=== PATIENT | female | born 1950 | race Caucasian/White ===

== ENCOUNTER 2023-10-09 10:16 | Outpatient (CLI) | payer MEDICARE, SELFPAY ==
[2023-10-09] VITALS (8 sets, daily range): BP systolic 127–184; BP diastolic 57–120; PULSE 70–98; RESP 12–18; TEMP 36.9; O2SAT 95–100
--- NOTE | 2023-10-09 11:00 | DI.RAD.S_ITS ---
PROCEDURE: PAIN L INTERLAMINAR/CAUDAL INJ INDICATIONS: LUMBAR RADICULOPATHY COMPARISON: Outside Facility, MR, MR LUMBAR SPINE WO CON, 07/31/2023, 10:36. [facility], CR, XR LUMBAR SPINE 2-3V, 05/15/2023, 14:21. FINDINGS: Fluoroscopic spot filming was performed to verify placement of spinal needles at the L4-L5 level(s), as labeled on the films. Appropriate location(s) of the needle tip(s) was confirmed by injection of iodinated contrast. IMPRESSION: Fluoroscopy for pain management. Dictated by: Meredith Mendoza M.D. on 10/09/2023 at 17:07 Approved by: Meredith Mendoza M.D. on 10/09/2023 at 17:08
[2023-10-09] MEDS: MIDAZOLAM 2 MG/2 ML VIAL 1 MG IV (11:11)
[2023-10-09] MEDS: DEXAMETHASONE 10 MG/ML VIAL INJ (11:15)
[2023-10-09] MEDS: iopamidoL 15 ML VIAL 3 ML INJ (11:16)
--- NOTE | 2023-10-09 12:11 | P.PCN_ITS ---
Date/Time/Diagnoses Date of procedure: 10/09/23 Time of procedure: 11:30 Procedure Notes Physician: Juan Herring Total Fluoroscopy time (seconds): 24 Total sedation minutes: 18 Procedure in detail & Post-procedure care: L4-5 Interlaminar Epidural Steroid Injection Indications: Ibis is presenting for treatment of lumbar radiculopathy with low back and leg pain. Preoperative diagnosis: Lumbar radiculopathy Postoperative diagnosis: Same Focused Examination: Ax3 Mood and affect are normal Vital Signs: VSS ASA: 3 Consent: Following review of allergies and potential side effects/complications, including, but not necessarily limited to, infection, allergic reaction, local tissue breakdown, stroke, temporary or permanent nerve injury, paralysis, and possible , the patient indicated that they understood and agreed to p roceed.? An informed consent document was signed by the patient, witnessed by a nurse and placed in the patient's chart.? Additionally, other treatment options including medications and physical therapy were reviewed with the patient. All questions were answered. Site was then marked. Anesthesia: After review of previous anesthetic history and IV conscious sedation, the patient was deemed safe to proceed with today's procedure with IV conscious sedation. IV sedation was accomplished with midazolam 1 mg administered by the RN after order by Dr. Herring. Sedation was titrated to patient comfort during the course of the procedure. Patient remained responsive to all verbal commands. Position: Prone Monitoring: NIBP, Pulse oximetry, 3 lead EKG Needle used: 18 gauge, 5? Tuohy Contrast: Isovue 300M Injectate: Dexamethasone 10 mg with 1% lidocaine 2 mL Technique: The skin was prepped with chloraprep and then draped in a sterile fashion. Time out was performed as per protocol. Oxygen applied via NC. Skin and subcutaneous structures of the needle entry site was then infiltrated with 3 mL of lidocaine 1%. Under AP, lateral and contralateral oblique fluoroscopic control, the Tuohy needle was guided into the L4-5 epidural space. The space was accessed with loss of resistance technique. Isovue 300M was then injected and the spread was consistent with the epidural space. There was no evidence for intravascular or intrathecal uptake. After negative aspiration, the above- mentioned injectate was then slowly administered and the needle withdrawn. The patient expressed no unusual discomfort or paresthesias during the injection. Band-Aids applied to injection sites. EBL: less than 1 ml Complications: None Post Procedure: Patient was taken to the recovery and monitored. The patient was provided a Pain Log to continue to record the patient's response to the target- specific procedure prior to the patient's follow-up visit with the referring physician. Patient was stable upon discharge. Detailed post procedure instructions were provided. Patient was asked to call in the event of worsening pain, fever, weakness, numbness or bladder or bowel incontinence.
== END 2023-10-09 11:46 | disposition home or self-care (01) ==
PROVIDERS: PCP Internal Medicine; Referring Provider Anesthesiology; Visit Provider Anesthesiology
DX: M54.16 Radiculopathy, lumbar region (principal)
CPT/HCPCS: 62323; 99152; J1100; J2250

== ENCOUNTER 2024-06-18 13:21 | Outpatient (CLI) | payer MEDICARE, SELFPAY ==
[2024-06-18] VITALS (9 sets, daily range): BP systolic 139–180; BP diastolic 65–98; PULSE 89–101; RESP 11–21; TEMP 37.1; O2SAT 96–100
--- NOTE | 2024-06-18 13:23 | DI.RAD.S_ITS ---
PROCEDURE: PAIN L INTERLAMINAR/CAUDAL INJ INDICATIONS: para Right L4/5 TL BUSHRA COMPARISON: [facility], , PAIN L INTERLAMINAR/CAUDAL INJ, 10/09/2023, 11:14. FINDINGS/IMPRESSION: Fluoroscopic spot filming was performed to verify placement of spinal needles at the right L4-L5 level(s), as labeled on the films. Appropriate location(s) of the needle tip(s) was confirmed by injection of iodinated contrast. Dictated by: Neftali Agosto M.D. on 06/21/2024 at 15:34 Approved by: Neftali Agosto M.D. on 06/21/2024 at 15:35
--- NOTE | 2024-06-18 14:08 | PM.PROC.IR.1 ---
Date/Time/Diagnoses Date of procedure: 06/18/24 Time of procedure: 14:09 Procedure Notes Total Fluoroscopy time (seconds): 6 Total sedation minutes: 10
[2024-06-18] MEDS: MIDAZOLAM 2 MG/2 ML VIAL IV (14:23)
[2024-06-18] MEDS: iopamidoL 15 ML VIAL 3 ML INJ (14:30)
[2024-06-18] MEDS: DEXAMETHASONE 10 MG/ML VIAL INJ (14:31)
[2024-06-18] MEDS: BETAMETHASONE 30 MG/5 ML MDV 12 MG INJ (14:31)
[2024-06-18] MEDS: BUPIVACAINE 0.25% (PF) VIAL 2 ML INJ (14:32)
--- NOTE | 2024-06-18 14:45 | P.PCN_ITS ---
Date/Time/Diagnoses Date of procedure: 06/18/24 Time of procedure: 14:45 Pre-procedure diagnosis: 1. HNP WITH RADICULAR FEATURES, 2. MULTILEVEL CENTRAL STENOSIS, Post-procedure diagnosis: same Procedure Notes Procedure: 1. FLUOROSCOPICALLY GUIDED CONTRAST CONTROLLED INTERLAMINAR EPIDURAL STEROID INJECTION -L4/5 Indications: Ibis is referred by Dr. Loomis for treatment of Bilateral Foraminal Stenosis R>L LE symptoms. Physician: Maximo Linares Total Fluoroscopy time (seconds): 8 Total sedation minutes: 14 Complications: none Procedure in detail & Post-procedure care: FINDINGS Multilevel Central Spinal Stenosis with Nerve Root Compression DESCRIPTION OF PROCEDURE Fluoroscopically guided, contrast-controlled L4/5 translaminar epidural steroid injection. Following review of allergy and review of potential side effects and complications, including, but not necessarily limited to, infection, allergic reaction, local tissue breakdown, temporary as well as permanent nerve injury, paralysis, stroke and possible , the patient indicated that the patient understood and agreed to proceed. An informed consent document was signed by the patient, witnessed by a nurse, and placed in the patient's chart. Additionally, other treatment options including modalities, medications, and physical therapy were reviewed with the patient. After review of previous anaesthesic history and IV conscious sedation the patient was deemed safe to proceed with today?s procedure with IV conscious sedation as ASA class II designation. Safety time-out was performed to confirm p atient ID, procedure to be performed and site of procedure. IV sedation was accomplished with a combination of 2mg of Versed was administered by the RN after DO order, titrated to patient comfort during the course of the procedure while the patient remained responsive to all verbal commands In the prone position, following sterile prep and drape of the lumbar region, the L4/5 translaminar space was identified fluoroscopically. The skin was anesthetized via a 25-gauge, 1.5inch needle with 1% lidocaine solution. At this point, a 22-gauge short bevel spinal needle was atraumatically introduced and advanced under fluoroscopic guidance into the region of the L4/5 translaminar space. Depth was confirmed on lateral view. Radiological data, including multiple fluoroscopic views of the lumbar spine, reveal a spinal needle at the L4/5 translaminar space. Lateral views then show placement of the needle in the epidural space. Subsequent views show contrast material flowing superiorly and inferiorly in the epidural space. No vascular or intrathecal uptake is observed. At this point, using loss of resistance technique with saline and air, the epidural space was entered. This was confirmed following negative aspiration with injection of approximately 1.5cc of Isovue 200, showing excellent epidural flow without vascular or intrathecal uptake. At this point, 1cc of 1% lidocaine solution combined with 2cc or 10mg of dexamethasone and 6mg betamethasone was injected without incident. The patient tolerated the procedure well without signs or symptoms of complications prior to transfer to the recovery area continued monitoring without incident. The patient was then transferred to the recovery area where they were observed for an appropriate period of time after the injection. The patient reported a VAS score of 6 prior to the procedure and a post- procedure VAS of 0. POST OP INSTRUCTIONS The patient was provided a Pain Log to continue to record their response to the target-specific procedure prior to follow-up visit with their referring physician. Additionally, specific post-injection care instructions and a contact number to our office were provided if concerns arise regarding possible complications associated with the procedure are suspected.
== END 2024-06-18 15:01 | disposition home or self-care (01) ==
PROVIDERS: PCP Internal Medicine; Referring Provider Physical Medicine & Rehabilitation; Visit Provider Physical Medicine & Rehabilitation
DX: M51.16 Intervertebral disc disorders with radiculopathy, lumbar region (principal); M48.061 Spinal stenosis, lumbar region without neurogenic claudication
CPT/HCPCS: 62323; 99152; J0702; J1100; J2250; J3490

== ENCOUNTER 2024-12-01 12:19 | Outpatient (CLI) | payer MEDICARE, SELFPAY ==
[2024-12-01] VITALS (10 sets, daily range): BP systolic 142–187; BP diastolic 67–94; PULSE 76–90; RESP 14–16; TEMP 36.6; O2SAT 94–100
[2024-12-01] MEDS: MIDAZOLAM 2 MG/2 ML VIAL IV ×2 (13:28→13:34)
[2024-12-01] MEDS: BETAMETHASONE 30 MG/5 ML MDV 12 MG INJ (13:38)
[2024-12-01] MEDS: DEXAMETHASONE 10 MG/ML VIAL INJ (13:38)
[2024-12-01] MEDS: BUPIVACAINE 0.25% (PF) VIAL 2 ML INJ (13:38)
--- NOTE | 2024-12-01 13:50 | P.PCN_ITS ---
Date/Time/Diagnoses Date of procedure: 12/01/24 Time of procedure: 13:50 Pre-procedure diagnosis: 1. HNP WITH RADICULAR FEATURES, 2. MULTILEVEL CENTRAL STENOSIS, Post-procedure diagnosis: same Procedure Notes Procedure: 1. FLUOROSCOPICALLY GUIDED CONTRAST CONTROLLED INTERLAMINAR EPIDURAL STEROID INJECTION -L4/5 Indications: Ibis is referred for treatment of Bilateral Foraminal Stenosis R>L LE symptoms. Physician: Maximo Linares Total Fluoroscopy time (seconds): 14 Total sedation minutes: 18 Complications: none Procedure in detail & Post-procedure care: FINDINGS Multilevel Central Spinal Stenosis with Nerve Root Compression DESCRIPTION OF PROCEDURE Fluoroscopically guided, contrast-controlled L4/5 translaminar epidural steroid injection. Following review of allergy and review of potential side effects and complications, including, but not necessarily limited to, infection, allergic reaction, local tissue breakdown, temporary as well as permanent nerve injury, p aralysis, stroke and possible , the patient indicated that the patient understood and agreed to proceed. An informed consent document was signed by the patient, witnessed by a nurse, and placed in the patient's chart. Additionally, other treatment options including modalities, medications, and physical therapy were reviewed with the patient. After review of previous anaesthesic history and IV conscious sedation the patient was deemed safe to proceed with today?s procedure with IV conscious sedation as ASA class II designation. Safety time-out was performed to confirm patient ID, procedure to be performed and site of procedure. IV sedation was accomplished with a combination of 4mg of Versed was administered by the RN after DO order, titrated to patient comfort during the course of the procedure while the patient remained responsive to all verbal commands In the prone position, following sterile prep and drape of the lumbar region, the L4/5 translaminar space was identified fluoroscopically. The skin was anesthetized via a 25-gauge, 1.5inch needle with 1% lidocaine solution. At this point, a 22-gauge short bevel spinal needle was atraumatically introduced and advanced under fluoroscopic guidance into the region of the L4/5 translaminar space. Depth was confirmed on lateral view. Radiological data, including multiple fluoroscopic views of the lumbar spine, reveal a spinal needle at the L4/5 translaminar space. Lateral views then show placement of the needle in the epidural space. Subsequent views show contrast material flowing superiorly and inferiorly in the epidural space. No vascular or intrathecal uptake is observed. At this point, using loss of resistance technique with saline and air, the epidural space was entered. This was confirmed following negative aspiration with injection of approximately 1.5cc of Isovue 200, showing excellent epidural flow without vascular or intrathecal uptake. At this point, 1cc of 0.25% marcaine solution combined with 3cc or 10mg of dexamethasone and 12mg betamethasone was injected without incident. The patient tolerated the procedure well without signs or symptoms of complications prior to transfer to the recovery area continued monitoring without incident. The patient was then transferred to the recovery area where they were observed for an appropriate period of time after the injection. The patient reported a VAS score of 6 prior to the procedure and a post- procedure VAS of 0. POST OP INSTRUCTIONS The patient was provided a Pain Log to continue to record their response to the target-specific procedure prior to follow-up visit with their referring physician. Additionally, specific post-injection care instructions and a contact number to our office were provided if concerns arise regarding possible complications associated with the procedure are suspected.
== END 2024-12-01 14:12 | disposition home or self-care (01) ==
LOC: RAD 12:19
PROVIDERS: Referring Provider Physical Medicine & Rehabilitation; Visit Provider Physical Medicine & Rehabilitation
DX: M51.16 Intervertebral disc disorders with radiculopathy, lumbar region (principal); M48.061 Spinal stenosis, lumbar region without neurogenic claudication
CPT/HCPCS: 62323; 99152; J0702; J1100; J2250

== ENCOUNTER → 2025-04-19 11:18 | Outpatient (CLI) | payer MEDICARE, SELFPAY ==
--- NOTE | 2025-04-19 11:20 | DI.RAD.S_ITS ---
PROCEDURE: XR LUMBAR SPINE MIN 4V INDICATIONS: BACK PAIN TECHNIQUE: 5 views of the lumbar spine were acquired, including bilateral oblique views. COMPARISON: None. FINDINGS: Bones: 5 nonrib-bearing vertebrae are present. Mild, grade 1 retrolisthesis of L2 on L3 and of L3 on L4. Moderate spondylosis of L2-3 and L3-4, mild in the inferior lumbar spine. Moderate inferior lumbar facet athrosis.. No vertebral body compression fractures. No suspicious bony lesions. Soft tissues: Overlying bowel gas pattern is normal. No suspicious soft tissue calcifications. Cholecystectomy clips in the right upper quadrant. Oblique images: No pars defects. IMPRESSION: No acute bony abnormality. Stepwise grade 1 degenerative retrolisthesis of L2-4 with moderate spondylosis. Dictated by: Randal Plata M.D. on 04/19/2025 at 12:05 Approved by: Randal Plata M.D. on 04/19/2025 at 12:07
--- NOTE | 2025-04-19 11:20 | DI.RAD.S_ITS ---
PROCEDURE: XR KNEE LT 3V INDICATIONS: DJD TECHNIQUE: 3 views of the knee were acquired. COMPARISON: None. FINDINGS: Mild degenerative changes with preserved joint spaces. No fracture or dislocation. No joint effusion. IMPRESSION: Mild degenerative arthritis. Dictated by: Maninder Mccarthy M.D. on 04/19/2025 at 13:15 Approved by: Maninder Mccarthy M.D. on 04/19/2025 at 13:15
--- NOTE | 2025-04-19 11:20 | DI.RAD.S_ITS ---
PROCEDURE: XR KNEE RT 3V INDICATIONS: DJD TECHNIQUE: 3 views of the knee were acquired. COMPARISON: None. FINDINGS: Mild degenerative changes with preserved joint spaces. No fracture or dislocation. No joint effusion. IMPRESSION: Mild degenerative arthritis. Dictated by: Maninder Mccarthy M.D. on 04/19/2025 at 11:54 Approved by: Maninder Mccarthy M.D. on 04/19/2025 at 13:14
== END ==
PROVIDERS: PCP Internal Medicine; Referring Provider Physical Medicine & Rehabilitation; Visit Provider Physical Medicine & Rehabilitation
DX: M48.061 Spinal stenosis, lumbar region without neurogenic claudication (principal); M47.26 Other spondylosis with radiculopathy, lumbar region; M43.16 Spondylolisthesis, lumbar region; M17.0 Bilateral primary osteoarthritis of knee
CPT/HCPCS: 72110; 73562

== ENCOUNTER → 2025-05-13 12:25 | Outpatient (CLI) | payer MEDICARE, SELFPAY ==
--- NOTE | 2025-05-13 12:26 | DI.MRI.S_ITS ---
PROCEDURE: MR ANKLE RT WO CON INDICATIONS: Sprain of calcaneofibular ligament of right ankle, TECHNIQUE: Noncontrast sagittal T1 spin echo and T2 fast spin echo with fat saturation, axial proton density fast spin echo and T2 fast spin echo with fat saturation, coronal T1 spin echo and T2 fast spin echo with fat saturation through the ankle/hindfoot. COMPARISON: None. FINDINGS: Image quality: Diagnostic. Osseous structures: No fracture. No suspicious marrow replacing process. Full-thickness articular cartilage loss of the calcaneal-cuboid joint. Small vascular remnant within the central calcaneal body. Prominent anterior process of the calcaneus which abuts the inferior lateral navicular bone. Ligaments: Intact syndesmotic ligaments. Intact anterior and posterior talofibular ligament. Intact calcaneofibular ligament. Intact deltoid ligament. Intact bifurcate ligament. Intact interosseous ligaments. Scarring and thickening of the infero plantar spring ligament without acute tear. Intact Lisfranc ligament. Muscles / Tendons: The anterior extensor tendons are intact. Mild tendinosis and trace tenosynovitis of the proximal tibialis posterior tendon. No high-grade tear. Flexor hallucis and flexor digitorum longus tendons are intact. Mild tendinosis and tenosynovitis of peroneus longus and brevis. Thickening of the superior peroneal retinaculum mild likely or sequela of remote injury. Achilles tendon is intact. There is mild diffuse atrophy of the lower leg and intrinsic foot musculature, which is within the expected changes for age. Plantar fascia: Intact Miscellaneous: Effacement of the fat within sinus tarsi with findings of subtalar impingement. Nonspecific subcutaneous fat edema along the medial ankle. Neurovascular: Unremarkable. IMPRESSION: 1. Findings of early subtalar impingement with effacement of the fat within sinus tarsi, correlate for sinus tarsi syndrome. 2. 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 3. Intact calcaneofibular ligament as queried. Dictated by: Randal Plata M.D. on 05/13/2025 at 14:56 Approved by: Randal Plata M.D. on 05/13/2025 at 15:06
== END ==
LOC: MRI 12:25
PROVIDERS: PCP Internal Medicine; Referring Provider Podiatrist; Visit Provider Podiatrist
DX: S93.411A Sprain of calcaneofibular ligament of right ankle, initial encounter (principal); X58.XXXA Exposure to other specified factors, initial encounter
CPT/HCPCS: 73721